=== PATIENT | male | born 1960 | race Caucasian/White ===

== ENCOUNTER → 2020-07-28 13:01 | Outpatient (CLI) | payer BC, SELFPAY ==
--- NOTE | ~2020-07-28 | MR_ITS ---
EXAMINATION: MR shoulder LT wo con DATE: 07/28/2020 14:16 INDICATION: Left shoulder pain TECHNIQUE: Magnetic resonance imaging (MRI) of the left shoulder was performed without intravenous co ntrast. Sequences included axial PD-weighted FS FSE, coronal oblique PD-weighted FS FSE, coronal obli que T2-weighted FS FSE, sagittal PD-weighted FS FSE, and sagittal T1-weighted SE. COMPARISON: 11/25/2016 FINDINGS: Coracoacromial arch: The acromion undersurface is curved in morphology (type II) with large anterior subacromial spur at t he insertion of the otherwise normal coracoacromial ligament. Severe acromioclavicular osteoarthritis with subarticular cystic changes and inferiorly directed osteophytes. Rotator cuff: Poorly defined likely full-thickness tear of the anterior supraspinatus tendon which extends approxim ately 2 cm medial to lateral and measures approximately 1 cm anterior to posterior. Interval progress ion of articular sided tear of the more posterior supraspinatus and infraspinatus tendons which now a ppears appears markedly attenuated with minimal residual bursal sided fibers extending to the greater tuberosity. The teres minor tendon is normal. Severe subscapularis tendinopathy with articular sided tear involving the cephalad two thirds of the lesser tuberosity footplate. Mild fatty atrophy of the supraspinatus, infraspinatus and subscapularis muscle bellies. Biceps tendon, glenoid labrum and glenohumeral cartilage: Complete tear of the intra-articular long head biceps tendon which is retracted below the level of th e intertubercular groove. Again seen is a tear of the superior to posterior superior glenoid labrum. Mild partial thickness cartilage loss along the cephalad half of the glenoid with relatively smooth c hondral surface. Mild partial thickness cartilage loss with chondral surface regularity along the cep halad aspect of the humeral head. Fluid: Physiologic amount of fluid in the glenohumeral joint and biceps tendon sheath. No loose osteochondra l bodies. Very small amount of fluid in the subacromial/subdeltoid bursa consistent with mild bursiti s. Bones: No fracture or pathologic marrow replacing process. IMPRESSION: 1. Unchanged small full-thickness tear of the anterior supraspinatus tendon with interval progression of severe partial thickness articular sided tear of the more posterior supraspinatus and infraspinat us tendons. 2. Severe subscapularis tendinopathy with partial thickness articular sided tear involving the cephal ad two thirds of the lesser tuberosity footplate. 3. Complete tear of the intra-articular long head biceps tendon. 4. Mild glenohumeral osteoarthritis with unchanged tear at the superior to posterior superior glenoid labrum. 5. Severe acromioclavicular osteoarthritis. 6. Mild subacromial/subdeltoid bursitis. Reviewed, dictated and finalized at location A. IMPRESSION: 1. Unchanged small full-thickness tear of the anterior supraspinatus tendon wit h interval progression of severe partial thickness articular sided tear of the more posterior supraspinatus and infraspinatus tendons. 2. Severe subscapularis tendinopathy with partial thickness articular sided tea r involving the cephalad two thirds of the lesser tuberosity footplate. 3. Complete tear of the intra-articular long head biceps tendon. 4. Mild glenohumeral osteoarthritis with unchanged tear at the superior to post erior superior glenoid labrum. 5. Severe acromioclavicular osteoarthritis. 6. Mild subacromial/subdeltoid bursitis.
--- NOTE | ~2020-07-28 | MR_ITS ---
EXAMINATION: MR shoulder RT wo con DATE: 07/28/2020 14:16 INDICATION: Severe weakness with osteoarthritis. TECHNIQUE: Magnetic resonance imaging (MRI) of the right shoulder was performed without intravenous c ontrast. Sequences included axial PD-weighted FS FSE, coronal oblique PD-weighted FS FSE, coronal obl ique T2-weighted FS FSE, sagittal PD-weighted FS FSE, and sagittal T1-weighted SE. COMPARISON: None. FINDINGS: Coracoacromial arch: The acromion undersurface is flat in morphology (type I) with moderate-sized anterior subacromial spu r at the acromial insertion of the coracoacromial ligament. Severe acromioclavicular osteoarthritis. Rotator cuff: Full-thickness supraspinatus tendon tear with the frayed an attenuated tear margin retracted approxim ately 3.5 cm from the greater tuberosity slightly medial to the apex of the humeral head. Severe infr aspinatus tendinopathy. The infraspinatus tendon appears thickened to approximately 3-5 cm from the l lainey tuberosity footplate with attenuated fibers in the distal tendon extending towards the middle f acet footplate consistent with likely high-grade partial tear. Hypertrophic change is seen along the greater tuberosity footplate of the supraspinatus and infraspinatus tendons. Mild tendinopathy withou t discrete tear at the distal teres minor tendon. Severe subscapularis tendinopathy with small mild p artial-thickness articular sided tear involving the superomedial aspect of the lesser tuberosity foot plate. Hypertrophic osteophytes are present at the lesser tuberosity footplate of the tendon. Mild fa tty atrophy in the supraspinatus and teres minor muscle bellies and moderate fatty atrophy of the sub scapularis muscle belly. Biceps tendon, glenoid labrum and glenohumeral cartilage: Long head of the biceps tendon is torn with small amount of residual frayed tendon material retracted below the level of the intertubercular groove. Severe irregular degenerative tearing of the anterior and superior to posterior superior glenoid labrum. The posterior Aber images relatively preserved wi th more well-defined tear at the chondral labral junction. The inferior to anterior inferior labrum a ppears to been replaced with a large osteophyte which extends into the axillary recess. There is exte nsive cartilage throughout the glenohumeral joint which appears full/near full-thickness along signif icant portions of the anterior and inferior glenoid as well as along the apex and apical posterior as pect of the humeral head. Moderate size marginal osteophytes along the inferior humeral head. Fluid: Small glenohumeral joint effusion which extends through the full-thickness rotator cuff tear into the subacromial/subdeltoid bursa. There are a few small loose osteochondral bodies surrounded by a small amount of fluid at the deep subscapular recess. Bones: No fracture or pathologic marrow replacing process. IMPRESSION: 1. Severe supraspinatus and infraspinatus tendinopathy with full-thickness tear which appears to invo lve the majority if not all of the supraspinatus tendon and with high-grade partial tear of the infra spinatus tendon. The margins of the tear are difficult to define due to the severity tendinopathy and the presence of multiple frayed lax appearing torn tendon fibers within the region of the tear defec t. 2. Severe subscapularis tendinopathy with mild partial thickness articular sided tear involving the s uperomedial lesser tuberosity footplate. 3. Moderate glenohumeral osteoarthritis with extensive moderate to high-grade chondromalacia as well as degenerative tearing of the glenoid labrum the inferior and anteroinferior portion of which appear s replaced by a large marginal osteophyte. 4. Full-thickness tear and retraction of the long head biceps tendon. 5. Severe acromioclavicular osteoarthritis.
== END ==
DX: M19.011 Primary osteoarthritis, right shoulder (principal); M75.52 Bursitis of left shoulder; M19.012 Primary osteoarthritis, left shoulder
CPT/HCPCS: 73221

== ENCOUNTER → 2021-04-09 02:12 | Outpatient (CLI) | payer BC, SELFPAY ==
[2021-04-09 17:04] LABS: SARS-CoV-2 RNA PCR Negative
== END ==
PROVIDERS: Visit Provider Internal Medicine Gastroenterology
DX: Z01.812 Encounter for preprocedural laboratory examination (principal); Z20.822 Contact with and (suspected) exposure to COVID-19
CPT/HCPCS: C9803; U0003; U0005

== ENCOUNTER 2021-04-12 00:20 | Day surgery (SDC) | payer BC, SELFPAY ==
[2021-04-02 11:51] VITALS: BMI 34.4
[2021-04-12 11:19] VITALS: BP 135/93; PULSE 79; RESP 20; TEMP 36.7; O2SAT 97; BMI 33.5
--- NOTE | 2021-04-12 11:24 | WPDANESEPPF ---
Anes - Initial Pre Proc Eval Procedure: Operation Date: 04/12/21 12:30 Proposed Procedures p Screening Colonoscopy - Hardy Jiménez MD Date/Time: 04/12/21 11:24 Surgeon: Hardy Jiménez MD Pre Op Diagnosis: family hx colon ca Patient Data Age: 60 Gender: M Height: 5 ft 10 in Weight: 105.8 kg Last Vital Signs Temp 98.1 F 04/12/21 11:19 Pulse 79 04/12/21 11:19 Resp 20 04/12/21 11:19 BP 135/93 H 04/12/21 11:19 Pulse Ox 97 04/12/21 11:19 Allergies Allergy/AdvReac Type Severity Reaction Status Date / Time No Known Allergies Verified 04/12/21 11:17 Home Medications Medication Instructions Recorded Confirmed Type sodium,potassium,mag sulfates 17.5 See Rx Instructions PO .COMPLEX 03/23/21 04/02/21 Rx gram-3.13 gram-1.6 gram oral soln #354 ml cholecalciferol (vitamin D3) 125 mcg PO DAILY 04/02/21 04/02/21 History cyanocobalamin (vitamin B-12) 1,000 mcg SUBLINGUAL DAILY 04/02/21 04/02/21 History [Vitamin B-12] esomeprazole magnesium [Nexium] 20 mg PO DAILY 04/02/21 04/02/21 History lisinopril 10 mg PO DAILY 04/02/21 04/02/21 History metformin 1,000 mg PO DAILY 04/02/21 04/02/21 History simvastatin 20 mg PO HS 04/02/21 04/02/21 History Patient hx anesthesia problems: none Family hx anesthesia problems: none PMFSH Past Medical History Medical History (Updated 04/12/21 @ 11:24 by Zachary Westfall MD) Arthritis Diabetes 1.5, managed as type 2 GERD (gastroesophageal reflux disease) Hyperlipidemia Hypertension Family History Family History (Updated 06/07/16 @ 23:19 by DOCTOR UNKNOWN) Mother Carcinoma of colon Family history of malignant neoplasm of breast in first degree relative Father Family history of heart disease in male family member before age 55 Other Family history of arthritis Family history of malignant neoplasm Social History Social History Smoking packs per day: 1 Smoking cigarettes per day: 20.0 Years smoked: 23 Smoking pack-years: 23.00 Smoking status: Former smoker Tobacco type: cigarettes Smoking end date: 11/10/00 Alcohol intake: current Drinks per week: 3 Living arrangements: with family Spiritual care concerns: No Anes - Eval Final PreProcedure Day of Procedure 04/12/21 11:24 Patient weight: obese Heart: regular rate and rhythm Lungs: clear to auscultation Airway: Mallampati scale class II Neurological: alert and oriented Last oral intake: >/= 8 hours ASA classification: III Emergent: no Anesthetic plan: proceed Anesthesia type and monitoring: general GIVS and standard monitoring Informed Consent: The patient's anesthetic plan and its attendant risks and benefits were discussed with the patient/family/POA. Questions were solicited and answers provided to the satisfaction of the patient/family/POA.
[2021-04-12] MEDS: LACTATED RINGERS 1,000 ML 150 ML IV CONT (11:25)
--- NOTE | 2021-04-12 12:21 | PM.HPGS ---
History of Present Illness History of Present Illness Consent: Risks, benefits, and alternatives have been discussed and questions answered. Patient agrees to proceed with procedure. Chief complaint: family hx colon ca Narrative: Cole Pro is a 60 year old male undergoing colon cancer screening. He has a family history of colon cancer. His mother had colon cancer in her 50s Review of Systems Review of Systems: All systems reviewed & are unremarkable except as noted in HPI and below PMFSH Past Medical History Medical History Arthritis Diabetes 1.5, managed as type 2 GERD (gastroesophageal reflux disease) Hyperlipidemia Hypertension Family History Family History Mother Carcinoma of colon Family history of malignant neoplasm of breast in first degree relative Father Family history of heart disease in male family member before age 55 Other Family history of arthritis Family history of malignant neoplasm Social History Social History Smoking packs per day: 1 Smoking cigarettes per day: 20.0 Years smoked: 23 Smoking pack-years: 23.00 Smoking status: Former smoker Tobacco type: cigarettes Smoking end date: 11/10/00 Alcohol intake: current Drinks per week: 3 Living arrangements: with family Spiritual care concerns: No Meds Home Medications and Allergies Home Medications Medication Instructions Recorded Confirmed Type sodium,potassium,mag sulfates 17.5 See Rx Instructions PO .COMPLEX 03/23/21 04/02/21 Rx gram-3.13 gram-1.6 gram oral soln #354 ml cholecalciferol (vitamin D3) 125 mcg PO DAILY 04/02/21 04/02/21 History cyanocobalamin (vitamin B-12) 1,000 mcg SUBLINGUAL DAILY 04/02/21 04/02/21 History [Vitamin B-12] esomeprazole magnesium [Nexium] 20 mg PO DAILY 04/02/21 04/02/21 History lisinopril 10 mg PO DAILY 04/02/21 04/02/21 History metformin 1,000 mg PO DAILY 04/02/21 04/02/21 History simvastatin 20 mg PO HS 04/02/21 04/02/21 History Allergies Allergy/AdvReac Type Severity Reaction Status Date / Time No Known Allergies Verified 04/12/21 11:17 Vital Signs Vital Signs - 24 hr 04/12/21 11:19 Temperature 36.7 C Pulse Rate 79 Respiratory Rate 20 Blood Pressure 135/93 H Pulse Oximetry 97 Exam Resp: Auscultation: clear to auscultation bilaterally Cardio: Rate: regular rate Rhythm: regular rhythm GI: GI Palp: Yes Soft to palpation and No Tenderness to palpation present (GI) Assessment and Plan Assessment and plan (1) Colon cancer screening: Code(s): Z12.11 - Encounter for screening for malignant neoplasm of colon Status: Acute Assessment and Plan: Colonoscopy with possible biopsy or polypectomy or cautery or injection of substances.
[2021-04-12 12:32] LABS: Glucose Point of Care 121 mg/dl (65-105)
[2021-04-12 12:52] VITALS: BP 104/65; PULSE 82; RESP 20; O2SAT 99
[2021-04-12 13:02] VITALS: BP 117/76; PULSE 89; RESP 20; O2SAT 98
== END 2021-04-12 13:25 | disposition home or self-care (01) ==
PROVIDERS: PCP Family Medicine; Visit Provider Internal Medicine Gastroenterology
PROC: 0DJD8ZZ Inspection of Lower Intestinal Tract, Via Natural or Artificial Opening Endoscopic (ICD-10-PCS; CPT 45378; principal; 2021-04-12 12:30)
DX: Z12.11 Encounter for screening for malignant neoplasm of colon (principal); K57.30 Diverticulosis of large intestine without perforation or abscess without bleeding; Z80.0 Family history of malignant neoplasm of digestive organs; I10 Essential (primary) hypertension; E78.5 Hyperlipidemia, unspecified; K21.9 Gastro-esophageal reflux disease without esophagitis; E13.9 Other specified diabetes mellitus without complications; M19.90 Unspecified osteoarthritis, unspecified site; Z79.84 Long term (current) use of oral hypoglycemic drugs; Z87.891 Personal history of nicotine dependence; E66.9 Obesity, unspecified; Z68.33 Body mass index [BMI] 33.0-33.9, adult
CPT/HCPCS: 45378; 82948; J2704; J7120

== ENCOUNTER → 2021-05-08 10:58 | Outpatient (CLI) | payer BC, SELFPAY ==
--- NOTE | ~2021-05-08 | MR_ITS ---
EXAMINATION: MR shoulder LT wo con DATE: 05/08/2021 12:02 INDICATION: Complete left rotator cuff tear with repair. Unable to raise the left arm. TECHNIQUE: Magnetic resonance imaging (MRI) of the left shoulder was performed without intravenous co ntrast. Sequences included axial fluid sensitive FSE STIR , coronal oblique PD-weighted FSE, coronal oblique fluid sensitive FSE STIR, sagittal fluid sensitive FSE STIR, and sagittal T1-weighted SE. COMPARISON: 07/28/2020 FINDINGS: Coracoacromial arch: The acromion undersurface is curved in morphology (type II). There is a new concave contour to the an terior acromion at the site of a prior prominent anterior subacromial spur suggesting interval acromi oplasty with release of the coracoacromial ligament. Severe acromioclavicular osteoarthritis. Rotator cuff: Postoperative change of prior rotator cuff repair with suture anchors at the lesser tuberosity and at the superior and middle facets of the greater tuberosity. Recurrent full-thickness tear of the supra spinatus tendon with the medial tear margin located approximately 1 cm medial to the lateral margin o f the acromion. There is small amount of residual frayed tendon which remains attached to the greater tuberosity. The tear extends posteriorly with intrasubstance tear involving portion of the infraspin atus tendon. There appears to be avulsion of the more posterior suture anchor from the middle tuberos ity which remains attached to the irregular infraspinatus tear margin retracted approximately 2 cm me dially from the anchor site. The anchor is subtly visible on oblique sagittal series 8, images 18-19 and on axial series 5, image 11. The teres minor tendon is normal. There is recurrent partial tear of the repaired subscapularis tendon from the cephalad half of the lesser tuberosity footplate. There i s edema as well as mild fatty atrophy of the subscapularis, infraspinatus and most prominently of the supraspinatus muscle bellies. Biceps tendon, glenoid labrum and glenohumeral cartilage: Long head of the biceps tendon is again not visualized consistent with prior tear and distal retracti on or tenotomy. Again seen is a tear of the superior to posterior superior glenoid labrum. The labrum on the caudal half of the glenoid now appears diminutive with mild amorphous increased signal consis tent with likely progressive degeneration. There is mild partial-thickness cartilage loss with smooth chondral surface along the cephalad half of the glenoid and along the inferomedial aspect of the hum eral head. No degenerative subchondral changes. Fluid: Small glenohumeral joint effusion which extends to the full-thickness rotator cuff tear into the suba cromial/subdeltoid bursa. No loose osteochondral bodies. Bones: Slight anterior and cephalad subluxation of the humeral head with respect to the glenoid likely secon oscar to the rotator cuff tear. No fracture or pathologic marrow replacing process. IMPRESSION: 1. Postoperative change of interval rotator cuff repair involving the subscapularis, supraspinatus an d infraspinatus tendons. 3 pairs failed with avulsion of the suture anchor at the middle facet and pa rtial tear of the associated infraspinatus tendon, complete tear and medial retraction of the suprasp inatus tendon and partial tear and medial retraction of the cephalad portion of the subscapularis ten don from its lesser tuberosity footplate. 2. Mild glenohumeral osteoarthritis with tear of the superior labrum and progression of degeneration of the inferior labrum. 3. Persistent nonvisualization of the long head biceps tendon consistent with chronic full-thickness tear and retraction or tenotomy. 4. Severe acromioclavicular osteoarthritis. Reviewed, dictated and finalized at location A. Electronically signed by Diogo Osei M.D. on
== END ==
PROVIDERS: PCP Family Medicine
DX: M75.122 Complete rotator cuff tear or rupture of left shoulder, not specified as traumatic (principal); M19.012 Primary osteoarthritis, left shoulder
CPT/HCPCS: 73221